=== PATIENT | female | born 1985 | race Caucasian/White ===

== ENCOUNTER 2018-04-13 17:58 | Inpatient (IN) | payer BC, OTHER ==
[~2018-04-13] VITALS: Ht 167.6 cm; Wt 54.4 kg
[2018-04-13] MEDS ORDERED: MIRALAX 17 GM POWD.PACK PO PRN (19:00)
[2018-04-13] MEDS ORDERED: ACETAMINOPHEN 325 MG TABLET PO PRN (19:00)
[2018-04-13] MEDS: MULTIVITAMINS,THERAPEUTIC TABLET PO SCH (19:00)
[2018-04-13] MEDS ORDERED: ONDANSETRON ODT 4 MG TAB.RAPDIS SL PRN (19:00)
[2018-04-13] MEDS ORDERED: MAGNESIUM HYDROXIDE 30 ML LIQUID UDC PO PRN (19:00)
[2018-04-13] MEDS ORDERED: CLONIDINE HCL 0.1 MG TABLET PO PRN (19:00)
[2018-04-13] MEDS ORDERED: LOPERAMIDE HCL 2 MG CAPSULE PO PRN ×2 (19:00)
[2018-04-13] MEDS ORDERED: LORAZEPAM 2 MG/1 ML VIAL IM PRN (19:00)
[2018-04-13] MEDS ORDERED: ONDANSETRON 4 MG/2 ML VIAL IM PRN (19:00)
[2018-04-13] MEDS ORDERED: diphenhydrAMINE 50 MG CAPSULE PO PRN (19:00)
[2018-04-13] MEDS ORDERED: LORAZEPAM 1 MG TABLET PO PRN ×2 (19:00)
[2018-04-13] MEDS ORDERED: MAG HYDROX/AL HYDROX/SIMETH 30 ML LIQUID UDC PO PRN (19:00)
[2018-04-13 19:05] LABS: BASOPHILS % (AUTO) 0.2 % (0.0-2.0); EOSINOPHILS # (AUTO) 0.1 K/uL (0.0-0.7); EOSINOPHILS % (AUTO) 0.6 % (0.0-7.0); HEMATOCRIT 40.2 % (31.2-41.9); HEMOGLOBIN 13.6 g/dL (10.9-14.3); LYMPHOCYTES # (AUTO) 2.3 K/uL (20.0-40.0); LYMPHOCYTES % (AUTO) 19.4 % (20.5-51.5); MEAN CORPUSCULAR HEMOGLOBIN 31.9 uug (24.7-32.8); MEAN CORPUSCULAR HGB CONC 34 g/dL (32.3-35.6); MEAN CORPUSCULAR VOLUME 94.7 fL (75.5-95.3); MONOCYTES # (AUTO) 0.5 K/uL (2.0-10.0); NEUTROPHILS # (AUTO) 9.2 K/uL (1.8-8.9); NEUTROPHILS % (AUTO) 75.8 % (38.5-71.5); PLATELET COUNT (AUTO) 367 K/uL (179-408); RED BLOOD CELL COUNT(AUTO) 4.24 MIL/uL (3.63-4.92); WHITE BLOOD COUNT (AUTO) 12.1 K/uL (3.8-11.8)
[2018-04-13 19:30] LABS: *URINE HCG, QUAL NEGATIVE (NEGATIVE)
[2018-04-13 19:33] LABS: ETHANOL < 3 MG/DL (0-0)
[2018-04-13 19:39] LABS: ALANINE AMINOTRANSFERASE 31 U/L (14-59); ALKALINE PHOSPHATASE 57 U/L (50-136); ASPARTATE AMINOTRANSFERASE 22 U/L (15-37); BILIRUBIN,TOTAL 0.8 mg/dL (0.2-1.0); CARBON DIOXIDE 26 mmol/L (21-32); CHLORIDE 100 mmol/L (98-107); CREATININE 0.8 mg/dL (0.6-1.3); GLUCOSE 117 mg/dL (74-106); MAGNESIUM 1.9 mg/dL (1.8-2.4); POTASSIUM 3.4 mmol/L (3.5-5.1); TOTAL PROTEIN, SERUM 8.3 g/dL (6.4-8.2); UREA NITROGEN, BLOOD 8 mg/dL (7-18)
[2018-04-13 19:40] LABS: *AMPHETAMINE, URINE NEGATIVE (NEGATIVE); *BARBITURATE, URINE NEGATIVE (NEGATIVE); *CANNABINOID, URINE NEGATIVE (NEGATIVE); *COCCAINE, URINE NEGATIVE (NEGATIVE); *OPIATE, URINE NEGATIVE (NEGATIVE); *PHENCYCLIDINE SCREEN,URINE NEGATIVE (NEGATIVE)
[2018-04-13] MEDS ORDERED: OLAN5TAB30 PO (19:45)
[2018-04-13] MEDS ORDERED: FLUO-120 PO (19:45)
[2018-04-13] MEDS ORDERED: QUET50TA PO (19:45)
[2018-04-13] MEDS ORDERED: BUSP10TA3 PO (19:45)
[2018-04-13] MEDS ORDERED: ERYT-113 PO (19:45)
[2018-04-13] MEDS ORDERED: ALPR1TAB7 PO (19:45)
[2018-04-13] MEDS ORDERED: FLUO40CA49 PO (19:45)
[2018-04-13 19:46] LABS: THYROID STIMULATING HORMONE 1.195 mIU/mL (0.358-3.740)
[2018-04-13] MEDS ORDERED: PHENOBARBITAL 60 MG TABLET PO ONE (20:00)
[2018-04-13 20:01] VITALS: BP 122/77
[2018-04-13] MEDS ORDERED: POTASSIUM CHLORIDE 20 MEQ TAB.PRT.SR PO ONE (21:00)
[2018-04-14 09:00] VITALS: BP 106/82
[2018-04-14] MEDS ORDERED: TUBERCULIN,PURIF.PROT.DERIV. 5 TU/0.1 ML TEST ID ONE (09:00)
[2018-04-14] MEDS ORDERED: 5 DAY PHENOBARBITAL TAPER -SERENITY PROTOCOL PO PRN (09:00)
[2018-04-14] MEDS: PHENOBARBITAL 60 MG TABLET PO SCH ×3 (09:25→20:31)
[2018-04-14] MEDS: MULTIVITAMINS,THERAPEUTIC TABLET PO SCH (09:25)
[2018-04-14 12:19] VITALS: BP 105/61
[2018-04-14] MEDS ORDERED: diphenhydrAMINE 50 MG CAPSULE PO PRN (12:45)
[2018-04-14] MEDS: FLUOXETINE HCL 20 MG CAPSULE PO SCH (13:28)
[2018-04-14] MEDS: DIVALPROEX 250 MG TABLET.DR PO SCH ×2 (13:29→17:00)
[2018-04-14 17:52] VITALS: BP 100/62
[2018-04-14 20:00] VITALS: BP 109/63
[2018-04-14] MEDS: QUETIAPINE FUMARATE 200 MG TABLET PO SCH (20:31)
[2018-04-14] MEDS: IBUPROFEN 600 MG TABLET PO PRN (20:31)
[2018-04-15 08:27] VITALS: BP 101/61
[2018-04-15] MEDS: DIVALPROEX 250 MG TABLET.DR PO SCH ×3 (09:20→17:22)
[2018-04-15] MEDS: FLUOXETINE HCL 20 MG CAPSULE PO SCH (09:20)
[2018-04-15] MEDS: MULTIVITAMINS,THERAPEUTIC TABLET PO SCH (09:20)
[2018-04-15] MEDS: PHENOBARBITAL 60 MG TABLET PO SCH ×4 (09:20→20:08)
[2018-04-15] MEDS: IBUPROFEN 600 MG TABLET PO PRN ×2 (11:47→20:17)
[2018-04-15 12:00] VITALS: BP 109/63
[2018-04-15 16:30] VITALS: BP 102/71
[2018-04-15] MEDS: QUETIAPINE FUMARATE 200 MG TABLET PO SCH (20:08)
[2018-04-15 20:14] VITALS: BP 102/59
[2018-04-16 03:06] LABS: HEPATITIS B SURFACE AG Negative (Negative)
[2018-04-16 07:49] LABS: CREATININE 0.9 mg/dL (0.6-1.3); POTASSIUM 3.6 mmol/L (3.5-5.1)
[2018-04-16 08:00] VITALS: BP 103/62
[2018-04-16] MEDS: PHENOBARBITAL 60 MG TABLET PO SCH ×3 (08:13→20:27)
[2018-04-16] MEDS: FLUOXETINE HCL 20 MG CAPSULE PO SCH (08:13)
[2018-04-16] MEDS: MULTIVITAMINS,THERAPEUTIC TABLET PO SCH (08:13)
[2018-04-16] MEDS: DIVALPROEX 250 MG TABLET.DR PO SCH ×3 (08:13→17:09)
[2018-04-16 12:00] VITALS: BP 98/60
[2018-04-16] MEDS: HYDROXYZINE PAMOATE 25 MG CAPSULE PO PRN (12:28)
[2018-04-16 16:00] VITALS: BP 105/62
[2018-04-16 20:00] VITALS: BP 94/57
[2018-04-16] MEDS: QUETIAPINE FUMARATE 200 MG TABLET PO SCH (20:27)
[2018-04-17 08:00] VITALS: BP 98/62
[2018-04-17] MEDS: MULTIVITAMINS,THERAPEUTIC TABLET PO SCH (09:34)
[2018-04-17] MEDS: FLUOXETINE HCL 20 MG CAPSULE PO SCH (09:34)
[2018-04-17] MEDS: DIVALPROEX 250 MG TABLET.DR PO SCH ×3 (09:34→17:18)
[2018-04-17] MEDS: PHENOBARBITAL 60 MG TABLET PO SCH ×2 (09:34→20:12)
[2018-04-17 12:47] VITALS: BP 106/64
[2018-04-17 16:55] VITALS: BP 103/68
[2018-04-17 20:00] VITALS: BP 116/68
[2018-04-17] MEDS: QUETIAPINE FUMARATE 200 MG TABLET PO SCH (20:12)
[2018-04-18 08:00] VITALS: BP 101/59
[2018-04-18] MEDS ORDERED: PHENOBARBITAL 60 MG TABLET PO SCH (09:00)
[2018-04-18] MEDS: MULTIVITAMINS,THERAPEUTIC TABLET PO SCH (09:04)
[2018-04-18] MEDS: FLUOXETINE HCL 20 MG CAPSULE PO SCH (09:04)
[2018-04-18] MEDS: DIVALPROEX 250 MG TABLET.DR PO SCH ×3 (09:04→17:26)
[2018-04-18 12:00] VITALS: BP 111/65
[2018-04-18] MEDS ORDERED: DIVA250T4 PO (13:58)
[2018-04-18] MEDS ORDERED: HYDR-3895 PO (13:59)
[2018-04-18] MEDS ORDERED: CLON0.1T14 PO (13:59)
[2018-04-18 16:00] VITALS: BP 92/55
[2018-04-18 20:00] VITALS: BP 101/58
[2018-04-18] MEDS: QUETIAPINE FUMARATE 200 MG TABLET PO SCH (20:20)
[2018-04-18] MEDS: HYDROXYZINE PAMOATE 25 MG CAPSULE PO PRN (20:20)
[2018-04-19] VITALS: BP 98/62
[2018-04-19 08:00] VITALS: BP 103/68
[2018-04-19] MEDS: DIVALPROEX 250 MG TABLET.DR PO SCH (08:17)
[2018-04-19] MEDS: MULTIVITAMINS,THERAPEUTIC TABLET PO SCH (08:17)
[2018-04-19] MEDS: FLUOXETINE HCL 20 MG CAPSULE PO SCH (08:17)
== END 2018-04-19 09:35 | disposition home or self-care (01) | DRG 895 ==
LOC: SRC 17:58
PROVIDERS: ADMIT Family Medicine Addiction Medicine; ATTEND Family Medicine Addiction Medicine
PROC: HZ2ZZZZ Detoxification Services for Substance Abuse Treatment (ICD-10-PCS; principal; 2018-04-13)
PROC: HZ31ZZZ Individual Counseling for Substance Abuse Treatment, Behavioral (ICD-10-PCS; 2018-04-16)
DX: F13.230 Sedative, hypnotic or anxiolytic dependence with withdrawal, uncomplicated (principal); F31.30 Bipolar disorder, current episode depressed, mild or moderate severity, unspecified; F41.1 Generalized anxiety disorder; Z91.5 Personal history of self-harm; H91.92 Unspecified hearing loss, left ear; K31.84 Gastroparesis; Z79.899 Other long term (current) drug therapy; E87.6 Hypokalemia; G89.29 Other chronic pain; M41.9 Scoliosis, unspecified; Z98.890 Other specified postprocedural states
CPT/HCPCS: 36415; 80164; 80307; 80346; 83735; 84443; 84703; 85025; 86592; 86705; 86803; 87340; 87806; A4663; G0480; J3490; J8499; Q0163